=== PATIENT | female | born 2000 | race Hispanic/Latino ===

== ENCOUNTER 2019-03-21 09:51 | Emergency (ER) | payer MEDICAID, OTHER | END 2019-03-21 10:06 | disposition home or self-care (01) | LOC: EDH 09:51 | DX: O26.891 Other specified pregnancy related conditions, first trimester (principal); O02.1 Missed abortion; Z3A.01 Less than 8 weeks gestation of pregnancy | CPT/HCPCS: 99281 ==

== ENCOUNTER 2021-03-04 15:37 | Emergency (ER) | payer MEDICAID ==
[~2021-03-04] VITALS: Ht 154.9 cm; Wt 62.7 kg
[2021-03-04 15:56] LABS: APPEARANCE,URINE Cloudy (CLEAR); BILIRUBIN,URINE Negative (NEGATIVE); COLOR,URINE Yellow (YELLOW); GLUCOSE, URINE (UA) Negative (NEGATIVE); KETONES,URINE >=160 mg/dL (NEGATIVE); LEUKOCYTE ESTERASE ,URINE Moderate (NEGATIVE); NITRATE,URINE Negative (NEGATIVE); OCCULT BLOOD,URINE Trace (NEGATIVE); PH,URINE 5.5 (5.0-8.0); PROTEIN,URINE POS 1+ mg/dL (NEGATIVE)
[2021-03-04] MEDS ORDERED: PROMETHAZINE HCL 25 MG/ML 1ML AMPULE IM ONE (16:00)
[2021-03-04] MEDS ORDERED: 0.9%NACL 1000ML 1,000 ML IV ONE (16:00)
[2021-03-04 16:08] LABS: BACTERIA,URINE Many /HPF (None Seen); MUCUS,URINE Many LPF (None Seen); RBC,URINE None Seen /HPF (0-1)
[2021-03-04 16:19] LABS: BASOPHILS % (AUTO) 0.2 % (0.0-5.0); EOSINOPHILS % (AUTO) 0.1 % (0.0-8.0); LYMPHOCYTES % (AUTO) 6.4 % (21.0-51.0); MEAN CORPUSCULAR HEMOGLOBIN 28.2 pg (27.0-33.0); MEAN CORPUSCULAR HGB CONC 33.2 g/dL (32.0-36.0); MEAN CORPUSCULAR VOLUME 84.9 fL (80-100); NEUTROPHILS % (AUTO) 88.9 % (40.0-77.0); PLATELET COUNT (AUTO) 134 K/uL (130-400); RED BLOOD CELL COUNT(AUTO) 4.83 MIL/uL (4.00-5.50); RED CELL DISTRIBUTION WIDTH 14.3 % (11.0-15.5); WHITE BLOOD COUNT (AUTO) 14.4 K/uL (4.8-10.8)
[2021-03-04] MEDS ORDERED: CEFTRIAXONE 1G VIAL IVP ONE (16:30)
[2021-03-04 16:34] LABS: CREATININE 0.6 mg/dL (0.5-1.5); POTASSIUM 3.5 mmol/L (3.5-5.1)
[2021-03-04 17:00] LABS: BILIRUBIN,TOTAL 0.4 mg/dL (0.2-1.0); CRP QUANTITATIVE 5.9 mg/L (0.00-9.0); TOTAL PROTEIN, SERUM 7.5 g/dL (6.0-8.3)
[2021-03-04 17:03] VITALS: BP 107/74
[2021-03-04] MEDS ORDERED: CEPH500B PO (17:11)
[2021-03-04] MEDS ORDERED: ONDA4TAB10 PO (17:11)
[2021-03-04] MEDS ORDERED: CEPH PO (17:24)
[2021-03-04] MEDS ORDERED: ONDANSETRON ODT 4MG TAB ONE (17:40)
[2021-03-04] MEDS ORDERED: ONDANSETRON ODT 4MG TAB SL SCH (18:00)
[2021-03-05] MEDS ORDERED: ONDA4TAB10 PO (17:00)
[2021-03-05] MEDS ORDERED: PHEN12S PR (17:00)
[2021-03-05] MEDS ORDERED: CYCL-309 PO (17:00)
== END 2021-03-04 17:29 | disposition home or self-care (01) ==
LOC: EDH 15:37
DX: O23.41 Unspecified infection of urinary tract in pregnancy, first trimester (principal); O99.891 Other specified diseases and conditions complicating pregnancy; I95.1 Orthostatic hypotension; Z79.899 Other long term (current) drug therapy; Z3A.11 11 weeks gestation of pregnancy
CPT/HCPCS: 36415; 80053; 81001; 84702; 85025; 86140; 87077; 87088; 87186; 96361; 96372; 96374; 99284; J0696; J2550; J7030

== ENCOUNTER 2021-03-05 13:57 | Emergency (ER) | payer MEDICAID ==
[~2021-03-05] VITALS: Ht 154.9 cm; Wt 61.2 kg
[~2021-03-05 13:57] MED LIST: CEPH PO; ONDA4TAB10 PO
[2021-03-05 14:03] VITALS: BP 117/71
[2021-03-05] MEDS ORDERED: 0.9%NACL 1000ML 1,000 ML IV ONE (15:00)
[2021-03-05] MEDS ORDERED: DiphenhydrAMINE HCL 50 MG/ML VIAL IV ONE (15:00)
[2021-03-05 16:01] LABS: APPEARANCE,URINE Cloudy (CLEAR); BILIRUBIN,URINE Negative (NEGATIVE); COLOR,URINE Yellow (YELLOW); GLUCOSE, URINE (UA) Negative (NEGATIVE); KETONES,URINE >=80 mg/dL (NEGATIVE); LEUKOCYTE ESTERASE ,URINE Moderate (NEGATIVE); NITRATE,URINE Negative (NEGATIVE); OCCULT BLOOD,URINE Trace (NEGATIVE); PROTEIN,URINE Negative (NEGATIVE)
[2021-03-05 16:12] LABS: BACTERIA,URINE Few /HPF (None Seen); RBC,URINE None Seen /HPF (0-1)
[2021-03-05 16:28] LABS: BASOPHILS % (AUTO) 0.2 % (0.0-5.0); EOSINOPHILS % (AUTO) 0.1 % (0.0-8.0); HEMATOCRIT 40.3 % (36-48); LYMPHOCYTES % (AUTO) 13.1 % (21.0-51.0); MEAN CORPUSCULAR HEMOGLOBIN 27.4 pg (27.0-33.0); MEAN CORPUSCULAR HGB CONC 32.3 g/dL (32.0-36.0); MEAN CORPUSCULAR VOLUME 84.8 fL (80-100); MONOCYTES % (AUTO) 6.8 % (3.0-13.0); NEUTROPHILS % (AUTO) 79.4 % (40.0-77.0); PLATELET COUNT (AUTO) 129 K/uL (130-400); RED BLOOD CELL COUNT(AUTO) 4.75 MIL/uL (4.00-5.50); RED CELL DISTRIBUTION WIDTH 14.2 % (11.0-15.5); WHITE BLOOD COUNT (AUTO) 10.8 K/uL (4.8-10.8)
[2021-03-05 16:36] LABS: CREATININE 0.6 mg/dL (0.5-1.5); POTASSIUM 3.3 mmol/L (3.5-5.1)
[2021-03-05 16:42] LABS: INR 1.11 (0.85-1.15)
[2021-03-05 16:44] LABS: PARTIAL THROMBOPLASTIN TIME 28.3 SEC (26.3-35.5)
[2021-03-05 16:50] LABS: ALBUMIN 3.8 g/dL (3.5-5.0); BILIRUBIN,TOTAL 0.5 mg/dL (0.2-1.0); TOTAL PROTEIN, SERUM 7.6 g/dL (6.0-8.3)
[2021-03-05] MEDS ORDERED: PHEN12S PR (17:00)
[2021-03-05] MEDS ORDERED: CYCL-309 PO (17:00)
[2021-03-05] MEDS ORDERED: ONDA4TAB10 PO (17:00)
[2021-03-05] MEDS ORDERED: CYCLOBENZAPRINE HCL 10 MG TABLET PO ONE (17:00)
[2021-03-05 17:05] LABS: B-TYPE NATRIURETIC PEPTIDE 16 pg/mL (0-100)
[2021-03-05] MEDS ORDERED: CYCLOBENZAPRINE HCL 10 MG TABLET ONE (17:14)
== END 2021-03-05 17:24 | disposition home or self-care (01) ==
LOC: EDH 13:57
DX: O99.281 Endocrine, nutritional and metabolic diseases complicating pregnancy, first trimester (principal); E86.9 Volume depletion, unspecified; O26.891 Other specified pregnancy related conditions, first trimester; R07.89 Other chest pain; F41.9 Anxiety disorder, unspecified; Z79.899 Other long term (current) drug therapy; Z79.01 Long term (current) use of anticoagulants; Z3A.10 10 weeks gestation of pregnancy
CPT/HCPCS: 36415; 71045; 80053; 81001; 82550; 83880; 84484; 84703; 85025; 85610; 85730; 93005; 96361 ×2; 96374; 99285; J1200; J7030

== ENCOUNTER 2021-04-28 20:45 | Emergency (ER) | payer MEDICAID ==
[~2021-04-28] VITALS: Ht 154.9 cm; Wt 64.4 kg
[~2021-04-28 20:45] MED LIST changes: +CYCL-309 PO; +PHEN12S PR
[2021-04-29] MEDS ORDERED: CEFTRIAXONE 1G VIAL IVP ONE (00:30)
[2021-04-29] MEDS ORDERED: 0.9%NACL 1000ML 1,000 ML IV ONE (00:30)
[2021-04-29] MEDS ORDERED: ONDANSETRON 4MG INJ IVP ONE (00:30)
[2021-04-29 00:39] LABS: BASOPHILS % (AUTO) 0.3 % (0.0-5.0); EOSINOPHILS % (AUTO) 0.1 % (0.0-8.0); HEMATOCRIT 39.3 % (36-48); LYMPHOCYTES % (AUTO) 13.3 % (21.0-51.0); MEAN CORPUSCULAR HEMOGLOBIN 28.6 pg (27.0-33.0); MEAN CORPUSCULAR HGB CONC 32.6 g/dL (32.0-36.0); MEAN CORPUSCULAR VOLUME 87.9 fL (80-100); MONOCYTES % (AUTO) 4.2 % (3.0-13.0); NEUTROPHILS % (AUTO) 81.4 % (40.0-77.0); PLATELET COUNT (AUTO) 152 K/uL (130-400); RED BLOOD CELL COUNT(AUTO) 4.47 MIL/uL (4.00-5.50); RED CELL DISTRIBUTION WIDTH 14.6 % (11.0-15.5); WHITE BLOOD COUNT (AUTO) 15.1 K/uL (4.8-10.8)
[2021-04-29 00:41] LABS: APPEARANCE,URINE Cloudy (CLEAR); BILIRUBIN,URINE Negative (NEGATIVE); COLOR,URINE Dark Yellow (YELLOW); GLUCOSE, URINE (UA) Negative (NEGATIVE); KETONES,URINE 15 mg/dL (NEGATIVE); LEUKOCYTE ESTERASE ,URINE Small (NEGATIVE); NITRATE,URINE Negative (NEGATIVE); OCCULT BLOOD,URINE Negative (NEGATIVE); PH,URINE 5.5 (5.0-8.0); PROTEIN,URINE Trace mg/dL (NEGATIVE)
[2021-04-29 00:50] LABS: CREATININE 0.5 mg/dL (0.5-1.5); POTASSIUM 3.8 mmol/L (3.5-5.1)
[2021-04-29 00:51] LABS: BACTERIA,URINE Moderate /HPF (None Seen); MUCUS,URINE Moderate LPF (None Seen); SQUAMOUS EPITHELIAL CELL,UR Few /HPF (0-2)
[2021-04-29 00:52] LABS: PROTHROMBIN TIME 10.9 SEC (9.6-11.6)
[2021-04-29 01:15] LABS: ALBUMIN 3.8 g/dL (3.5-5.0); BILIRUBIN,TOTAL 0.3 mg/dL (0.2-1.0); TOTAL PROTEIN, SERUM 7.9 g/dL (6.0-8.3)
[2021-04-29 01:29] VITALS: BP 122/75
[2021-04-29] MEDS ORDERED: CEPH250S PO (01:45)
== END 2021-04-29 01:55 | disposition home or self-care (01) ==
LOC: EDH 20:45
DX: O23.42 Unspecified infection of urinary tract in pregnancy, second trimester (principal); Z3A.18 18 weeks gestation of pregnancy
CPT/HCPCS: 36415; 80053; 81001; 84702; 85025; 85610; 87088; 96361; 96374; 96375; 99284; J0696; J2405; J7030

== ENCOUNTER → 2021-07-30 | Outpatient (CLI) | payer MEDICAID ==
[~2021-07-30] VITALS: Ht 154.9 cm; Wt 72.6 kg
[~2021-07-30] MED LIST changes: +AEC81 PO; +CEPH250S PO; +ENOX40DI8 SQ; +FERR-82 PO; +PREN1TAB80 PO
[2021-07-30 17:26] VITALS: BP 110/64
[2021-07-30 18:26] LABS: APPEARANCE,URINE Clear (CLEAR); BILIRUBIN,URINE Negative (NEGATIVE); COLOR,URINE Yellow (YELLOW); GLUCOSE, URINE (UA) Negative (NEGATIVE); KETONES,URINE Negative (NEGATIVE); LEUKOCYTE ESTERASE ,URINE Negative (NEGATIVE); NITRATE,URINE Negative (NEGATIVE); OCCULT BLOOD,URINE Negative (NEGATIVE); PH,URINE 6.5 (5.0-8.0); PROTEIN,URINE Negative (NEGATIVE)
== END | disposition home or self-care (01) ==
LOC: RAH 10:00 → EDSTATUS 11:14 → EDH 17:25 → UNDOADMOB 17:26 → LDH 17:26 → UNDODISOB 18:50
PROVIDERS: ATTEND Obstetrics & Gynecology
DX: O23.43 Unspecified infection of urinary tract in pregnancy, third trimester (principal); N39.0 Urinary tract infection, site not specified; Z3A.31 31 weeks gestation of pregnancy
CPT/HCPCS: 81003; A4351; 96360; G0378; J7120

== ENCOUNTER 2021-08-04 19:19 | Observation (INO) | payer MEDICAID ==
[~2021-08-04] VITALS: Ht 154.9 cm; Wt 73.5 kg
[~2021-08-04 19:19] MED LIST changes: -AEC81 PO; -ENOX40DI8 SQ; -FERR-82 PO; -PREN1TAB80 PO
[2021-08-04 19:21] VITALS: BP 121/70
[2021-08-04 19:43] VITALS: BP 121/71
[2021-08-04 19:56] LABS: APPEARANCE,URINE Clear (CLEAR); BILIRUBIN,URINE Negative (NEGATIVE); COLOR,URINE Yellow (YELLOW); GLUCOSE, URINE (UA) Negative (NEGATIVE); KETONES,URINE Negative (NEGATIVE); LEUKOCYTE ESTERASE ,URINE Moderate (NEGATIVE); NITRATE,URINE Negative (NEGATIVE); OCCULT BLOOD,URINE Negative (NEGATIVE); PROTEIN,URINE Negative (NEGATIVE)
[2021-08-04 20:14] LABS: BACTERIA,URINE Few /HPF (None Seen); MUCUS,URINE Rare LPF (None Seen); SQUAMOUS EPITHELIAL CELL,UR Moderate /HPF (0-2)
[2021-08-04] MEDS ORDERED: PREN1TAB80 PO (20:18)
[2021-08-04] MEDS ORDERED: ENOX40DI8 SQ (20:18)
[2021-08-04] MEDS ORDERED: AEC81 PO (20:18)
[2021-08-04] MEDS ORDERED: FERR-82 PO (20:18)
== END 2021-08-04 21:25 | disposition home or self-care (01) ==
LOC: EDH 19:19 → LDH 19:20
PROVIDERS: ADMIT Obstetrics & Gynecology; ATTEND Obstetrics & Gynecology
DX: O26.893 Other specified pregnancy related conditions, third trimester (principal); R06.6 Hiccough; Z3A.32 32 weeks gestation of pregnancy; Z79.899 Other long term (current) drug therapy
CPT/HCPCS: 59025; 76819; 81001; 87088; G0378 ×2; G0379

== ENCOUNTER 2021-08-19 20:33 | Observation (INO) | payer MEDICAID ==
[~2021-08-19] VITALS: Ht 154.9 cm; Wt 74.0 kg
[~2021-08-19 20:33] MED LIST changes: +AEC81 PO; +ENOX40DI8 SQ; +FERR-82 PO; +PREN1TAB80 PO
[2021-08-19 20:35] VITALS: BP 121/64
[2021-08-19 21:16] LABS: APPEARANCE,URINE Clear (CLEAR); BILIRUBIN,URINE Negative (NEGATIVE); COLOR,URINE Yellow (YELLOW); GLUCOSE, URINE (UA) Negative (NEGATIVE); KETONES,URINE Negative (NEGATIVE); LEUKOCYTE ESTERASE ,URINE Negative (NEGATIVE); NITRATE,URINE Negative (NEGATIVE); OCCULT BLOOD,URINE Negative (NEGATIVE); PROTEIN,URINE Negative (NEGATIVE); UROBILINOGEN,URINE 0.2 mg/dL (0.2-1.0)
== END 2021-08-19 22:55 | disposition home or self-care (01) ==
LOC: EDH 20:33 → LDH 20:34
PROVIDERS: ADMIT Obstetrics & Gynecology; ATTEND Obstetrics & Gynecology
DX: O26.893 Other specified pregnancy related conditions, third trimester (principal); R10.9 Unspecified abdominal pain; Z3A.34 34 weeks gestation of pregnancy; Z79.899 Other long term (current) drug therapy
CPT/HCPCS: 59025; 81003; 96360; G0378 ×2; G0379; J7120

== ENCOUNTER 2021-09-05 14:59 | Observation (INO) | payer MEDICAID ==
[~2021-09-05] VITALS: Ht 154.9 cm; Wt 74.4 kg
[2021-09-05 15:05] VITALS: BP 117/70
== END 2021-09-05 17:27 | disposition home or self-care (01) ==
LOC: EDH 14:59 → LDH 15:00
PROVIDERS: ADMIT Obstetrics & Gynecology; ATTEND Obstetrics & Gynecology
DX: O62.9 Abnormality of forces of labor, unspecified (principal); Z3A.36 36 weeks gestation of pregnancy
CPT/HCPCS: 59025; G0378 ×2

== ENCOUNTER 2021-09-07 11:01 | Observation (INO) | payer MEDICAID | END 2021-09-07 12:55 | disposition home or self-care (01) | LOC: LDH 11:01 | PROVIDERS: ADMIT Obstetrics & Gynecology; ATTEND Obstetrics & Gynecology | DX: Z34.83 Encounter for supervision of other normal pregnancy, third trimester (principal); Z3A.37 37 weeks gestation of pregnancy | CPT/HCPCS: 59025; G0378 ==

== ENCOUNTER 2023-04-28 16:00 | Emergency (ER) | payer MEDICAID ==
[~2023-04-28] VITALS: Ht 157.5 cm; Wt 68.9 kg
[2023-04-28] MEDS: ACETAMINOPHEN 500 MG TABLET PO ONE (16:44)
[2023-04-28] MEDS: ONDANSETRON ODT 4MG TAB SL ONE (16:44)
[2023-04-28 16:45] LABS: BASOPHILS # (AUTO) 0.05 K/uL (0.00-0.20); BASOPHILS % (AUTO) 0.5 % (0.0-5.0); EOSINOPHILS # (AUTO) 0.06 K/uL (0.00-0.70); EOSINOPHILS % (AUTO) 0.5 % (0.0-8.0); IMMATURE GRANULOCYTE ABSOLUTE 0.07 K/uL (0-1); LYMPHOCYTES # (AUTO) 2.4 K/uL (1.0-4.8); LYMPHOCYTES % (AUTO) 22.1 % (21.0-51.0); MEAN CORPUSCULAR HEMOGLOBIN 28.3 pg (27.0-33.0); MEAN CORPUSCULAR HGB CONC 32.9 g/dL (32.0-36.0); MONOCYTES # (AUTO) 0.6 K/uL (0.1-1.0); MONOCYTES % (AUTO) 5.1 % (3.0-13.0); NEUTROPHILS # (AUTO) 7.8 K/uL (1.8-7.7); NEUTROPHILS % (AUTO) 71.2 % (40.0-77.0); PLATELET COUNT (AUTO) 150 K/uL (130-400); RED BLOOD CELL COUNT(AUTO) 4.42 MIL/uL (4.00-5.50); RED CELL DISTRIBUTION WIDTH 13.3 % (11.0-15.5)
[2023-04-28 17:04] LABS: CREATININE 0.5 mg/dL (0.5-1.5); POTASSIUM 3.4 mmol/L (3.5-5.1)
[2023-04-28 17:09] LABS: ALBUMIN 3.3 g/dL (3.5-5.0); BILIRUBIN,TOTAL 0.3 mg/dL (0.2-1.0); TOTAL PROTEIN, SERUM 7.5 g/dL (6.0-8.3)
[2023-04-28] MEDS ORDERED: ONDA4TAB10 PO (17:20)
[2023-04-28] MEDS: KCL 20 MEQ ERTAB PO ONE (17:25)
[2023-04-28 17:52] VITALS: BP 121/68; PULSE 84; RESP 18; O2SAT 98
== END 2023-04-28 17:59 | disposition home or self-care (01) ==
LOC: EDH 16:00
DX: O99.352 Diseases of the nervous system complicating pregnancy, second trimester (principal); G44.209 Tension-type headache, unspecified, not intractable; Z79.82 Long term (current) use of aspirin; Z79.899 Other long term (current) drug therapy; Z98.890 Other specified postprocedural states; Z3A.22 22 weeks gestation of pregnancy
CPT/HCPCS: 36415; 80053; 85025

== ENCOUNTER → 2023-06-27 | Outpatient (CLI) | payer MEDICAID | END | disposition home or self-care (01) | LOC: SHCH 13:05 | PROVIDERS: ATTEND Internal Medicine Cardiovascular Disease | DX: R00.2 Palpitations (principal) | CPT/HCPCS: 93306 ==

== ENCOUNTER 2023-07-17 21:49 | Emergency (ER) | payer MEDICAID ==
[~2023-07-17] VITALS: Ht 157.5 cm; Wt 72.1 kg
[2023-07-17] MEDS: CETIRIZINE HCL 5 MG TABLET PO SCH (23:30)
[2023-07-18 00:50] VITALS: BP 110/62; PULSE 98; RESP 18; O2SAT 95
== END 2023-07-18 01:30 | disposition home or self-care (01) ==
LOC: EDH 21:49
DX: O26.893 Other specified pregnancy related conditions, third trimester (principal); T63.441A Toxic effect of venom of bees, accidental (unintentional), initial encounter; M79.89 Other specified soft tissue disorders; Z3A.34 34 weeks gestation of pregnancy; Z79.82 Long term (current) use of aspirin; X58.XXXA Exposure to other specified factors, initial encounter
CPT/HCPCS: 99282

== ENCOUNTER 2023-07-30 15:43 | Observation (INO) | payer MEDICAID ==
[~2023-07-30] VITALS: Ht 157.5 cm; Wt 72.6 kg
[~2023-07-30 15:43] MED LIST changes: +ONDA-243 PO; -ONDA4TAB10 PO
[2023-07-30 15:46] VITALS: BP 111/68; PULSE 95; RESP 16
[2023-07-30 16:25] LABS: APPEARANCE,URINE CLOUDY (CLEAR); BILIRUBIN,URINE NEGATIVE (NEGATIVE); COLOR,URINE YELLOW (YELLOW); GLUCOSE, URINE (UA) NEGATIVE (NEGATIVE); KETONES,URINE 150 mg/dL (NEGATIVE); LEUKOCYTE ESTERASE ,URINE 500 Leu/uL (NEGATIVE); NITRATE,URINE 2+ (NEGATIVE); OCCULT BLOOD,URINE NEGATIVE (NEGATIVE); PH,URINE 6.5 (5.0-8.0); PROTEIN,URINE 50 mg/dL (NEGATIVE); UROBILINOGEN,URINE 0.2 mg/dL (0.2-1.0)
[2023-07-30 16:27] LABS: ADD UA MICROSCOPIC YES
[2023-07-30 16:33] LABS: BACTERIA,URINE RARE /HPF (None Seen); MUCUS,URINE FEW LPF (None Seen); SQUAMOUS EPITHELIAL CELL,UR FEW /HPF (0-2); WBC CLUMP FEW /HPF (0-1); WBC,URINE 51-100 /HPF (0-1)
[2023-07-30] MEDS: PROMETHAZINE HCL 25 MG/ML 1ML AMPULE IM ONE (16:43)
[2023-07-30] MEDS: LACTATED RINGERS 1000ML 1,000 ML IV SCH (16:44)
[2023-07-30] MEDS: ACETAMINOPHEN WITH CODEINE 1 TAB TAB PO PRN (16:44)
== END 2023-07-30 19:45 | disposition home or self-care (01) ==
LOC: EDH 15:43 → LDH 15:44
PROVIDERS: ADMIT Obstetrics & Gynecology; ATTEND Obstetrics & Gynecology
DX: O21.2 Late vomiting of pregnancy (principal); O99.353 Diseases of the nervous system complicating pregnancy, third trimester; G43.909 Migraine, unspecified, not intractable, without status migrainosus; Z3A.36 36 weeks gestation of pregnancy
CPT/HCPCS: 96372; 96360; 96361; 87088; 81001; G0378 ×4; G0379; J2550; J7120 ×2; 59025

== ENCOUNTER 2023-11-26 17:49 | Emergency (ER) | payer MEDICAID ==
[~2023-11-26] VITALS: Ht 157.5 cm; Wt 68.9 kg
[2023-11-26] MEDS: 0.9%NACL 1000ML 1,000 ML IV ONE (19:09)
[2023-11-26 19:14] LABS: BASOPHILS # (AUTO) 0.05 K/uL (0.00-0.20); BASOPHILS % (AUTO) 0.5 % (0.0-5.0); EOSINOPHILS # (AUTO) 0.11 K/uL (0.00-0.70); EOSINOPHILS % (AUTO) 1.1 % (0.0-8.0); HEMATOCRIT 39.4 % (36-48); IMMATURE GRANULOCYTE ABSOLUTE 0.04 K/uL (0-1); LYMPHOCYTES # (AUTO) 3.3 K/uL (1.0-4.8); LYMPHOCYTES % (AUTO) 32.8 % (21.0-51.0); MEAN CORPUSCULAR HEMOGLOBIN 25.9 pg (27.0-33.0); MEAN CORPUSCULAR HGB CONC 32.2 g/dL (32.0-36.0); MEAN CORPUSCULAR VOLUME 80.4 fL (79-99); MONOCYTES # (AUTO) 0.6 K/uL (0.1-1.0); NEUTROPHILS % (AUTO) 59.2 % (40.0-77.0); PLATELET COUNT (AUTO) 178 K/uL (130-400); RED CELL DISTRIBUTION WIDTH 17.2 % (11.0-15.5); WHITE BLOOD COUNT (AUTO) 10.1 K/uL (4.8-10.8)
[2023-11-26 19:29] LABS: CREATININE 0.6 mg/dL (0.5-1.0); POTASSIUM 3.6 mmol/L (3.5-5.1)
[2023-11-26 20:20] VITALS: BP 113/75; PULSE 68; RESP 18; TEMP 98.8; O2SAT 100
== END 2023-11-26 20:28 | disposition home or self-care (01) ==
LOC: EDH 17:49
DX: T83.39XA Other mechanical complication of intrauterine contraceptive device, initial encounter (principal); N93.8 Other specified abnormal uterine and vaginal bleeding; G43.909 Migraine, unspecified, not intractable, without status migrainosus; Z79.82 Long term (current) use of aspirin; Z79.899 Other long term (current) drug therapy; Z98.890 Other specified postprocedural states; Y82.8 Other medical devices associated with adverse incidents; Y92.89 Other specified places as the place of occurrence of the external cause
CPT/HCPCS: 99284; 96360; 76856; 80048; 84703; 85025; 86850; 86900; 86901; 36415; J7030

== ENCOUNTER 2023-12-31 11:10 | Emergency (ER) | payer MEDICAID ==
[~2023-12-31] VITALS: Ht 157.5 cm; Wt 67.1 kg
[2023-12-31] MEDS: FLUORESCEIN SODIUM 1 STRIP STRIP ONE (11:38)
[2023-12-31] MEDS: FLUORESCEIN SODIUM 1 STRIP STRIP OP SCH (11:39)
[2023-12-31 11:48] VITALS: BP 117/68; PULSE 80; RESP 16; TEMP 98.3; O2SAT 100
[2023-12-31] MEDS ORDERED: MAXIOS OP (11:54)
== END 2023-12-31 12:15 | disposition home or self-care (01) ==
LOC: EDH 11:10
DX: T15.02XA Foreign body in cornea, left eye, initial encounter (principal); H10.9 Unspecified conjunctivitis; Z79.82 Long term (current) use of aspirin; Z79.899 Other long term (current) drug therapy; Z98.890 Other specified postprocedural states; W44.8XXA Other foreign body entering into or through a natural orifice, initial encounter; Y93.89 Activity, other specified; Y92.89 Other specified places as the place of occurrence of the external cause; Y99.8 Other external cause status
CPT/HCPCS: 65220

== ENCOUNTER 2024-06-22 18:50 | Emergency (ER) | payer MEDICAID ==
[~2024-06-22] VITALS: Ht 157.5 cm; Wt 66.7 kg
[~2024-06-22 18:50] MED LIST changes: +MAXIOS OP
[2024-06-22] MEDS: 0.9%NACL 1000ML 1,000 ML IV STA (19:17)
[2024-06-22 19:23] LABS: BASOPHILS # (AUTO) 0.03 K/uL (0.00-0.20); BASOPHILS % (AUTO) 0.4 % (0.0-5.0); EOSINOPHILS % (AUTO) 1.5 % (0.0-8.0); HEMATOCRIT 39.7 % (36-48); IMMATURE GRANULOCYTE ABSOLUTE 0.01 K/uL (0-1); LYMPHOCYTES # (AUTO) 1.8 K/uL (1.0-4.8); LYMPHOCYTES % (AUTO) 25.7 % (21.0-51.0); MEAN CORPUSCULAR HEMOGLOBIN 24.3 pg (27.0-33.0); MEAN CORPUSCULAR HGB CONC 30.7 g/dL (32.0-36.0); MEAN CORPUSCULAR VOLUME 79.1 fL (79-99); MONOCYTES # (AUTO) 0.5 K/uL (0.1-1.0); MONOCYTES % (AUTO) 7.8 % (3.0-13.0); NEUTROPHILS # (AUTO) 4.4 K/uL (1.8-7.7); NEUTROPHILS % (AUTO) 64.5 % (40.0-77.0); PLATELET COUNT (AUTO) 184 K/uL (130-400); RED BLOOD CELL COUNT(AUTO) 5.02 MIL/uL (4.00-5.50); RED CELL DISTRIBUTION WIDTH 16.4 % (11.0-15.5); WHITE BLOOD COUNT (AUTO) 6.8 K/uL (4.8-10.8)
[2024-06-22 19:25] LABS: APPEARANCE,URINE CLEAR (CLEAR); BILIRUBIN,URINE NEGATIVE (NEGATIVE); COLOR,URINE YELLOW (YELLOW); GLUCOSE, URINE (UA) NEGATIVE (NEGATIVE); KETONES,URINE NEGATIVE (NEGATIVE); LEUKOCYTE ESTERASE ,URINE NEGATIVE Leu/uL (NEGATIVE); NITRATE,URINE NEGATIVE (NEGATIVE); OCCULT BLOOD,URINE LARGE (NEGATIVE); PROTEIN,URINE 20 mg/dL (NEGATIVE)
[2024-06-22 19:32] LABS: CREATININE 0.6 mg/dL (0.5-1.0); POTASSIUM 3.4 mmol/L (3.5-5.1)
[2024-06-22 19:38] LABS: ADD UA MICROSCOPIC YES
[2024-06-22 19:41] LABS: BACTERIA,URINE RARE /HPF (None Seen); MUCUS,URINE FEW LPF (None Seen); RBC,URINE TNTC /HPF (0-1); SQUAMOUS EPITHELIAL CELL,UR RARE /HPF (0-2)
--- NOTE | 2024-06-22 20:05 | ERN ---
ED Note History of Present Illness Stated Complaint: DIARRHEA X2 DAYS Chief Complaint: Diarrhea Time Seen by MD: 18:52 Time Seen by Midlevel: 19:00 Dictation: 24-year-old female with no past medical history coming in with complaints of diarrhea for the last two days. Patient states today she was going to about 4 times, loose and brown. Patient denies any fever, nausea or vomiting. Allergies: Coded Allergies: No Known Drug Allergies (Unverified Allergy, Unknown, 03/29/19) Home Meds Active Scripts Rashard/Polymyx B Sulf/Dexameth (Maxitrol Ophth Susp) 3.5 Mg/Ml-10,000 Unit/Ml-0.1 % Opsus, 1 DROP OP QID, #5 ML 0 Refills Prov:KEEGAN FELDER MD 12/31/23 Ondansetron (Ondansetron Odt) 4 Mg Tab.rapdis, 4 MG PO Q6HPRN PRN for nausea, #16 TAB 0 Refills Prov:RONALD VILLANUEVA NP 04/28/23 Cephalexin (Keflex 250 mg/5 ml Susp) 250 Mg/5 Ml Oral.susp, 500 MG PO QID PRN for 5 for 5 Days, #200 ML Prov:BIA SOLOMON MD 04/29/21 Cyclobenzaprine HCl (Cyclobenzaprine HCl) 10 Mg Tablet, 10 MG PO TIDP, #20 TAB 0 Refills Prov:EPIFANIO CROSS MD 03/05/21 Promethazine HCl (Phenergan Supp) 12.5 Mg Supp, 12.5 MG HI TIDP, #15 SUPP 0 Refills Prov:EPIFANIO CROSS MD 03/05/21 Ondansetron (Ondansetron Odt) 4 Mg Tab.rapdis, 4 MG PO Q6HPRN, #20 TAB 0 Refills Prov:EPIFANIO CROSS MD 03/05/21 Cephalexin (Cephalexin) 250 Mg/5 Ml Oral.susp, 500 MG PO TID for 7 Days, #210 ML Prov:CRISTY PATEL 03/04/21 Ondansetron (Ondansetron Odt) 4 Mg Tab.rapdis, 4 MG PO QIDP, #28 TAB Prov:CRISTY PATEL 03/04/21 Reported Medications Ferrous Sulfate (Iron) 325 Mg Tablet, 325 MG PO QODAY, TAB 08/04/21 Aspirin (ASPIRIN 81 MG ECTAB) 81 Mg Ectab, 81 MG PO DAILY, TAB.EC 08/04/21 Enoxaparin Sodium (Lovenox) 40 Mg/0.4 Ml Disp.syrin, 40 MG SQ DAILY, DIS.SYR 08/04/21 Vits W-Ca,Fe,FA(<1Mg) ( Vitamins) 1 Each Tablet, 1 EACH PO DAILY, TAB 08/04/21 Past Medical History Past Medical History: No Pertinent History Additional Past Medical Hx: ANTI-PHOSPHOLIPID CONDITION (ANTICOAGULANT) Surgical History: Other Surgical History Other: L EYE, D&C Social History: Negative, Lives with family : 5 Para: 1 Aborts: 3 Review of System Dictation Constitutional: Negative for fever,chills, and weight loss Eyes: Negative for injury, pain,redness, and discharge ENT: Negative for injury,pain or swelling Cardiovascular: Negative for chest pain, palpitations, and edema Respiratory: Negative for shortness of breath, cough, and wheezing, Abdomen/GI: Negative for abdominal pain, nausea, vomiting, positive for diarrhea Back: Negative for injury and pain : Negative for injury, bleeding and discharge MS/Extremity: Negative for injury and deformity Skin: Negative for rash, and discoloration Neuro: Negative for headache, weakness, numbness, tingling, and seizure Psych: Negative for suicide ideation, homicidal ideation, and hallucinations Review of Systems: was completed Initial Vital Sign VS Vital Signs Date Time Temp Pulse Resp B/P (MAP) Pulse Ox O2 Delivery O2 Flow Rate FiO2 06/22/24 18:51 98.2 83 14 115/74 98 Room Air 0 06/22/24 19:23 21 Physical Exam Dictation General: awake, alert, NAD Head/Face: Normocephalic, atraumatic Eyes: PERRL, EOMI, vision at baseline ENT: oral cavity clear, TMs clear, no signs of infection Neck: Trachea midline, supple, no nuchal rigidity Cardiovascular: RRR, normal S1/S2, No MRGs, no JVD Respiratory: CTAB, no respiratory distress, No rales or wheezes Abdomen: Soft, non-tender, non-distended, normal bowel sounds, no guarding or re bound. Skin: Warm, dry, normal turgor, no rash MS/Extremity: Pulses equal, no cyanosis, neurovascular intact, FROM Neuro: COAx4, GCS 15, strength 5/5, CN 2-12 intact, normal cerebellar exam, normal gait, Psych: Normal behavior, mood, and affect normal Results (Laboratory/Radiology) Laboratory/Radiology Laboratory Tests Test 06/22/24 19:00 06/22/24 19:13 Urine Color YELLOW (YELLOW) Urine Appearance CLEAR (CLEAR) Urine pH 6.0 (5.0-8.0) Urine Specific [place] 1.034 (1.001-1.031) Urine Protein 20 mg/dL (NEGATIVE) H Urine Glucose (UA) NEGATIVE mg/dL (NEGATIVE) Urine Ketones NEGATIVE mg/dL (NEGATIVE) Urine Occult Blood LARGE (NEGATIVE) H Urine Nitrate NEGATIVE (NEGATIVE) Urine Bilirubin NEGATIVE mg/dL (NEGATIVE) Urine Urobilinogen 2.0 mg/dL (0.2-1.0) H Urine Leukocyte Esterase NEGATIVE Skip/uL Urine RBC TNTC /HPF (0-1) H Urine WBC 2-5 /HPF (0-1) H Urine Squamous Epithelial Cells RARE /HPF (0-2) Urine Bacteria RARE /HPF (None Seen) White Blood Count 6.8 K/uL (4.8-10.8) Red Blood Count 5.02 MIL/uL (4.00-5.50) Hemoglobin 12.2 g/dL (12.0-16.0) Hematocrit 39.7 % (36-48) Mean Corpuscular Volume 79.1 fL (79-99) Mean Corpuscular Hemoglobin 24.3 pg (27.0-33.0) L Mean Corpuscular Hemoglobin Concent 30.7 g/dL (32.0-36.0) L Red Cell Distribution Width 16.4 % (11.0-15.5) H Platelet Count 184 K/uL (130-400) Mean Platelet Volume 12.3 fL (7.5-10.5) H Immature Granulocyte % (Auto) 0.1 % (0-1) Neutrophils (%) (Auto) 64.5 % (40.0-77.0) Lymphocytes (%) (Auto) 25.7 % (21.0-51.0) Monocytes (%) (Auto) 7.8 % (3.0-13.0) Eosinophils (%) (Auto) 1.5 % (0.0-8.0) Basophils (%) (Auto) 0.4 % (0.0-5.0) Neutrophils # (Auto) 4.4 K/uL (1.8-7.7) Lymphocytes # (Auto) 1.8 K/uL (1.0-4.8) Monocytes # (Auto) 0.5 K/uL (0.1-1.0) Eosinophils # (Auto) 0.10 K/uL (0.00-0.70) Basophils # (Auto) 0.03 K/uL (0.00-0.20) Absolute Immature Granulocyte (auto 0.01 K/uL (0-1) Nucleated Red Blood Cells 0.0 % (0.0-0.19) Red Blood Cell Morphology See comments Sodium Level 140 mmol/L (136-145) Potassium Level 3.4 mmol/L (3.5-5.1) L Chloride Level 103 mmol/L (101-111) Carbon Dioxide Level 31 mmol/L (21-32) Blood Urea Nitrogen 13 mg/dL (7-18) Creatinine 0.6 mg/dL (0.5-1.0) Glomerular Filtration Rate Calc 128 mL/min (>90) Random Glucose 93 mg/dL (70-105) Total Calcium 8.7 mg/dL (8.5-10.1) Human Chorionic Gonadotropin, Quant 0 mIU/mL (0-5) Labs Reviewed?: Yes ED Course ED Course Orders Procedure Category Date Status Time Cbc With Differential LAB 06/22/24 Complete 19:01 Basic Metabolic Panel LAB 06/22/24 Complete 19:01 Hcg,Quantitative LAB 06/22/24 Complete 19:01 Urinalysis Profile LAB 06/22/24 Complete 19:01 0.9%Nacl 1000ml (Ns PHA 06/22/24 Complete 1000ml) 19:01 Current Medications Medications (Trade) Dose Ordered Sig/Enrike Route PRN Reason Start Time Stop Time Status Last Admin Dose Admin Sodium Chloride 1,000 ml @ 1,000 mls/hr Q1H STAT IV 06/22/24 19:01 06/22/24 20:00 DC 06/22/24 19:17 Vital Signs Date Time Temp Pulse Resp B/P (MAP) Pulse Ox O2 Delivery O2 Flow Rate FiO2 06/22/24 19:23 98.8 98 18 132/70 98 Room Air* 0 21 06/22/24 18:51 98.2 83 14 115/74 98 Room Air 0 Medical Decision Making MDM MDM: 24-year-old female with no past medical history coming in with complaints of diarrhea for the last two days. Patient states today she was going to about 4 times, loose and brown. Patient denies any fever, nausea or vomiting. Blood work unremarkable. Patient was not . UA shows evidence of hematuria however patient has started her menstruation couple of days ago. 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 Discussed she has gastroenteritis. Educated this last anywhere from 7-10 days to stay hydrated and avoid any greasy, spicy foods. Patient verbalized understanding, answered all questions. Differential diagnosis: Dehydration, gastroenteritis, Rationale: Tests considered and ordered secondary to shared decision making include: Previous outside records reviewed: Old ER visits. Risk of complication and/or morbidity or mortality of patient management: None Medications-Per medication reconciliation Need for hospitalization: Patient does not meet criteria for hospitalization. Need for emergency major/minor surgery: No There are no social concerns with this patient. Prescription drug management Prescriptions will include symptomatic care Patient's prior external medical records from other ER visits were reviewed by me as indicated. Prior testing and results from previous visits were reviewed. Prior tests were taken into account with medical decision making and resource utilization, independent historian/historians were used to obtain complete medical history. I independently interpreted the test that were performed, results were reviewed by me and considered findings on radiology if ordered. Medical management and examination interpretation discussions were had by me with other qualified healthcare professionals as indicated for the patient's care. DX & DISP Disposition: Discharge Departure Impression: Primary Impression: Gastroenteritis Condition: Stable Additional Instructions: More than likely you have gastroenteritis. Your lab work is normal. Continue to hydrate yourself. Avoid any fatty food, greasy, fatty or spicy foods. This can last anywhere from 7-10 days. Come to the hospital if your symptoms worsen. Referrals: MARI LOYA M.D. (PCP) Time of Disposition: 20:04 I have reviewed the case, and I agree with, Diagnosis and Plan ROBERT CATES NP Jun 22, 2024 20:05
[2024-06-22 20:08] VITALS: BP 134/73; PULSE 84; RESP 20; TEMP 98.1; O2SAT 98
== END 2024-06-22 20:27 | disposition home or self-care (01) ==
LOC: EDH 18:50
DX: K52.9 Noninfective gastroenteritis and colitis, unspecified (principal); R10.2 Pelvic and perineal pain; Z79.82 Long term (current) use of aspirin; Z79.899 Other long term (current) drug therapy
CPT/HCPCS: 99283; 96360; 80048; 84702; 85025; 81001; 36415; J7030